=== PATIENT | male | born 1965 | race Two or more races ===

== ENCOUNTER 2024-10-02 13:13 | Emergency (ER) | payer SELFPAY ==
[~2024-10-02] VITALS: Ht 182.9 cm; Wt 77.3 kg
[2024-10-02 13:27] VITALS: BP 124/72; PULSE 81; RESP 18; TEMP 98.3; O2SAT 100
== END 2024-10-02 15:31 | disposition left against medical advice (07) ==
LOC: EMS 13:18
DX: S60.221A Contusion of right hand, initial encounter (principal); X58.XXXA Exposure to other specified factors, initial encounter; Y93.89 Activity, other specified; Y92.89 Other specified places as the place of occurrence of the external cause; Y99.8 Other external cause status
CPT/HCPCS: 73130-TC